=== PATIENT | female | born 1950 | race Two or more races ===

== ENCOUNTER 2018-01-05 19:35 | Emergency (ER) | payer BC, MEDICARE ==
[~2018-01-05] VITALS: Ht 162.6 cm; Wt 69.6 kg
[2018-01-05 19:40] VITALS: BP 132/69
[2018-01-05 20:09] LABS: BASOPHILS % (AUTO) 0 % (0-1); EOSINOPHILS # (AUTO) 0.01 x10^3/uL (0-0.4); EOSINOPHILS % (AUTO) 0 % (1-7); LYMPHOCYTES # (AUTO) 1.13 x10^3/uL (1-3.4); LYMPHOCYTES % (AUTO) 16 % (22-44); MD NO; MEAN CORPUSCULAR HEMOGLOBIN 32.7 pg (27.0-34.8); MEAN CORPUSCULAR HGB CONC 34.6 g/dL (32.4-35.8); MEAN CORPUSCULAR VOLUME 94.4 fL (80-100); MEAN PLATELET VOLUME 7.9 fL (7.4-10.4); MONOCYTES % (AUTO) 4 % (2-9); NEUTROPHILS # (AUTO) 5.78 x10^3/uL (1.8-6.8); NEUTROPHILS % (AUTO) 80 % (42-75); PLATELET COUNT 229 x10^3/uL (130-400); RED CELL DISTRIBUTION WIDTH 12.3 % (9.6-15.2)
[2018-01-05 20:10] LABS: ALBUMIN 3.6 g/dL (3.4-5.0); ANION GAP 7 mmol/L (5-15); CALCIUM 8.6 mg/dL (8.5-10.1); CHLORIDE 100 mmol/L (98-107); CREATININE 1.11 mg/dL (0.55-1.02)
[2018-01-06] MEDS ORDERED: TRIA1TAB5 PO (15:14)
[2018-01-06] MEDS ORDERED: POTA20TA89 PO (15:15)
[2018-01-06] MEDS ORDERED: AZATHIOPRINE PO (15:26)
== END 2018-01-05 20:52 | disposition home or self-care (01) ==
LOC: ED 19:55
DX: R25.1 Tremor, unspecified (principal); Z00.01 Encounter for general adult medical examination with abnormal findings; M06.9 Rheumatoid arthritis, unspecified
CPT/HCPCS: 36415; 80048; 82040; 85025; 99283

== ENCOUNTER 2018-01-06 13:38 | Emergency (ER) | payer MEDICARE ==
[~2018-01-06] VITALS: Ht 162.6 cm; Wt 68.9 kg
[2018-01-06 13:43] VITALS: BP 124/58
[2018-01-06 14:50] LABS: BASOPHILS # (AUTO) 0.01 x10^3/uL (0-0.1); BASOPHILS % (AUTO) 0 % (0-1); EOSINOPHILS % (AUTO) 0 % (1-7); LYMPHOCYTES # (AUTO) 0.47 x10^3/uL (1-3.4); LYMPHOCYTES % (AUTO) 7 % (22-44); MD NO; MEAN CORPUSCULAR HGB CONC 32.7 g/dL (32.4-35.8); MEAN CORPUSCULAR VOLUME 94.8 fL (80-100); MEAN PLATELET VOLUME 7.6 fL (7.4-10.4); MONOCYTES # (AUTO) 0.26 x10^3/uL (0.2-0.8); MONOCYTES % (AUTO) 4 % (2-9); NEUTROPHILS # (AUTO) 5.86 x10^3/uL (1.8-6.8); NEUTROPHILS % (AUTO) 89 % (42-75); PLATELET COUNT 195 x10^3/uL (130-400); RED BLOOD COUNT 3.99 x10^6/uL (3.82-5.3); RED CELL DISTRIBUTION WIDTH 12.2 % (9.6-15.2)
[2018-01-06 15:00] LABS: ANION GAP 1 mmol/L (5-15); CALCIUM 8.6 mg/dL (8.5-10.1); CHLORIDE 102 mmol/L (98-107); CREATININE 1.19 mg/dL (0.55-1.02)
[2018-01-06 15:09] LABS: CULTURE INDICATED? YES; MICROSCOPIC AUTO
[2018-01-06] MEDS ORDERED: TRIA1TAB5 PO (15:14)
[2018-01-06] MEDS ORDERED: POTA20TA89 PO (15:15)
[2018-01-06] MEDS ORDERED: AZATHIOPRINE PO (15:26)
== END 2018-01-06 16:10 | disposition home or self-care (01) ==
LOC: ED 16:00
DX: Z00.00 Encounter for general adult medical examination without abnormal findings (principal); I10 Essential (primary) hypertension; M06.9 Rheumatoid arthritis, unspecified
CPT/HCPCS: 36415; 80048; 81001; 85025; 87086; 99283

== ENCOUNTER 2018-07-09 11:18 | Emergency (ER) | payer OTHER ==
[~2018-07-09] VITALS: Ht 160 cm; Wt 69.1 kg
[~2018-07-09 11:18] MED LIST: AZATHIOPRINE PO; POTA20TA89 PO; TRIA1TAB5 PO
[2018-07-09 11:28] VITALS: BP 120/78
[2018-07-09] MEDS ORDERED: DEXAMETHASONE 4 MG TABLET ONE (11:53)
[2018-07-09] MEDS ORDERED: DEXAMETHASONE 4 MG TABLET PO ONE (12:00)
== END 2018-07-09 12:49 | disposition home or self-care (01) ==
LOC: ED 12:41
DX: J06.9 Acute upper respiratory infection, unspecified (principal); I10 Essential (primary) hypertension; M06.9 Rheumatoid arthritis, unspecified; Z87.891 Personal history of nicotine dependence
CPT/HCPCS: 71046; 87081; 87880; 99284

== ENCOUNTER 2018-12-10 11:21 | Day surgery (SDC) | payer BC, MEDICARE ==
[~2018-12-10] VITALS: Ht 144.8 cm; Wt 67.1 kg
--- NOTE | 2018-12-10 11:33 | NUR ---
Note undone in EDM - 12/10/18 at 1140 by DANG A&OX4, RESP EVEN & UNLABORED, SPEECH CLEAR, SKIN PALE/W/D. STATUS POST-CARDIAC SURGERY 11/30/18: NOHELIA MONTANO, VALVE REPAIR, PACEMAKER. C/O WEAKNESS, SOB, NAUSEA. DENIES VOMITING. LAST ORAL INTAKE: 0730 TODAY. LAST BM: YESTERDAY. PT ACCOMPANIED BY NEIGHBOR.
--- NOTE | 2018-12-10 12:03 | NUR ---
C/O EPIGASTRIC PAIN STARTED SHANE, VOMITED.. RECENTLY DX'D W/ GALLSTONES.
[2018-12-10 12:10] LABS: BASOPHILS # (AUTO) 0.01 x10^3/uL (0-0.1); BASOPHILS % (AUTO) 0 % (0-1); EOSINOPHILS # (AUTO) 0.01 x10^3/uL (0-0.4); EOSINOPHILS % (AUTO) 0 % (1-7); LYMPHOCYTES # (AUTO) 1.12 x10^3/uL (1-3.4); LYMPHOCYTES % (AUTO) 25 % (22-44); MD NO; MEAN CORPUSCULAR HEMOGLOBIN 32.8 pg (27.0-34.8); MEAN CORPUSCULAR HGB CONC 34.3 g/dL (32.4-35.8); MEAN CORPUSCULAR VOLUME 95.8 fL (80-100); MEAN PLATELET VOLUME 7.8 fL (7.4-10.4); MONOCYTES # (AUTO) 0.28 x10^3/uL (0.2-0.8); MONOCYTES % (AUTO) 6 % (2-9); NEUTROPHILS # (AUTO) 3.13 x10^3/uL (1.8-6.8); NEUTROPHILS % (AUTO) 69 % (42-75); PLATELET COUNT 224 x10^3/uL (130-400); RED BLOOD COUNT 4.22 x10^6/uL (3.82-5.3)
[2018-12-10 12:22] LABS: ALBUMIN 3.3 g/dL (3.4-5.0); ANION GAP 6 mmol/L (5-15); CALCIUM 8.7 mg/dL (8.5-10.1); CHLORIDE 102 mmol/L (98-107)
[2018-12-10 12:27] LABS: ALANINE AMINOTRANSFERASE 58 U/L (12-78); ALKALINE PHOSPHATASE 60 U/L (45-117); BILIRUBIN,TOTAL 0.3 mg/dL (0.2-1.0); CREATININE 1.02 mg/dL (0.55-1.02); TOTAL PROTEIN 9.6 g/dL (6.4-8.2)
[2018-12-10] MEDS ORDERED: POTASSIUM CHLORIDE 20 MEQ TAB.ER.PRT PO ONE (13:00)
--- NOTE | 2018-12-10 13:22 | NUR ---
XR AT BS
[2018-12-10] MEDS ORDERED: CEFTRIAXONE PMX 1GM/50ML 0 ML ONE (13:29)
[2018-12-10] MEDS ORDERED: POTASSIUM CHLORIDE 20 MEQ TAB.ER.PRT ONE ×2 (13:29→14:16)
[2018-12-10] MEDS ORDERED: CEFOTETAN PMX 1GM/50ML 50 ML IV ONE (13:30)
[2018-12-10 13:41] LABS: TROPONIN I < 0.015 ng/mL (0.000-0.045)
--- NOTE | 2018-12-10 13:45 | NUR ---
DR DEY BS
--- NOTE | 2018-12-10 13:52 | NUR ---
LAST ORAL INTAKE: [facility]G AT 1015 TODAY, WATER AFTER.
[2018-12-10] MEDS ORDERED: CEFOTETAN PMX 1GM/50ML 50 ML ONE (14:06)
--- NOTE | 2018-12-10 14:17 | NUR ---
[facility] DOSE CONFIRMED W/ DR DEY: 40mEq po NOW
--- NOTE | 2018-12-10 14:51 | NUR ---
PT REPORT TO ALTON AMADOR FOR ROOM 474
[2018-12-10 15:28] VITALS: BP 121/84
[2018-12-10] MEDS ORDERED: TURM538C PO (16:29)
[2018-12-10] MEDS ORDERED: EPINEPHRINE 1 MG/ML, 1ML ONE (19:07)
[2018-12-10] MEDS ORDERED: BUPIVACAINE/PF 0.5% ONE (19:07)
[2018-12-10] MEDS ORDERED: FENTANYL PF 250 MCG/5ML ONE (20:01)
[2018-12-10] MEDS ORDERED: SUGAMMADEX 200 MG/2 ML IVPush ONE (20:47)
[2018-12-10] MEDS ORDERED: NEOSTIGMINE 1 MG/ML, 10ML ONE (20:49)
[2018-12-10] MEDS ORDERED: GLYCOPYRROLATE 0.2MG/1ML, 5ML ONE (20:49)
[2018-12-10] MEDS ORDERED: ROCURONIUM 10MG/ML,5ML ONE (20:49)
[2018-12-10] MEDS ORDERED: ONDANSETRON 2MG/ML, 2ML ONE (20:49)
[2018-12-10] MEDS ORDERED: CEFAZOLIN 1,000 MG ONE (20:49)
[2018-12-10] MEDS ORDERED: SUCCINYLCHOLINE 20 MG/ML, 10ML ONE (20:49)
[2018-12-10] MEDS ORDERED: DEXAMETHASONE 4 MG/ML, 1ML ONE (20:49)
[2018-12-10] MEDS ORDERED: PROPOFOL 10 MG/ML, 20ML ONE (20:49)
[2018-12-10] MEDS ORDERED: OXYcodone 5 MG/5 ML ORAL.SOL UDC ONE (21:28)
[2018-12-10] MEDS ORDERED: FENTANYL PF 100 MCG/2ML ONE (21:28)
[2018-12-10] MEDS ORDERED: FENTANYL PF 100 MCG/2ML IV PRN (21:30)
[2018-12-10] MEDS ORDERED: LABETALOL 5MG/ML, 20ML IV PRN (21:30)
[2018-12-10] MEDS ORDERED: DIAZEPAM 5 MG/ML, 2ML IVPush PRN (21:30)
[2018-12-10] MEDS ORDERED: MEPERIDINE/PF 25MG/ML,1ML IVPush PRN (21:30)
[2018-12-10] MEDS ORDERED: hydrALAzine 20 MG/ML, 1ML IV PRN (21:30)
[2018-12-10] MEDS ORDERED: MORPHINE SULFATE 4 MG/ML, 1ML IVPush PRN (21:30)
[2018-12-10] MEDS ORDERED: ACETAMINOPHEN 325 MG TABLET PO PRN (21:30)
[2018-12-10] MEDS ORDERED: PROMETHAZINE 25 MG/ML, 1ML IV PRN (21:30)
[2018-12-10] MEDS ORDERED: MIDAZOLAM 1 MG/ML, 2ML IV PRN (21:30)
[2018-12-10] MEDS ORDERED: OXYcodone 5 MG/5 ML ORAL.SOL UDC PO PRN (21:30)
[2018-12-10] MEDS ORDERED: ONDANSETRON 2MG/ML, 2ML IV PRN (21:30)
[2018-12-10 22:35] VITALS: BP 143/80
[2018-12-11] MEDS ORDERED: IBUPROFEN 200 MG TABLET PO PRN (00:30)
[2018-12-11] MEDS ORDERED: ACETAMINOPHEN 325 MG TABLET PO PRN (00:30)
[2018-12-11] MEDS ORDERED: ONDANSETRON 2MG/ML, 2ML IV PRN (00:30)
[2018-12-11] MEDS ORDERED: HYDROmorphone 2 MG/ML, 1ML IV PRN (00:30)
[2018-12-11] MEDS ORDERED: OXYcodone IR 5MG TABLET PO PRN (00:30)
[2018-12-11 00:51] VITALS: BP 129/78
[2018-12-11] MEDS ORDERED: OXYC5TAB3 PO (03:23)
[2018-12-11 03:31] VITALS: BP 115/74
[2018-12-11 07:45] VITALS: BP 110/71
[2018-12-11] MEDS ORDERED: ONDA8TAB9 PO (08:45)
[2018-12-11] MEDS ORDERED: POTASSIUM CHLORIDE 20 MEQ TAB.ER.PRT PO SCH (09:00)
[2018-12-11] MEDS ORDERED: TRIAMTERENE/HCTZ 75/50MG TABLET PO SCH (09:00)
== END 2018-12-11 09:34 | disposition home or self-care (01) ==
LOC: ED 12:59 → UNDOADMOB 13:00 → OUT 13:00 → EDIP 13:00 → ED 13:57 → 4NE 15:13 → EDIP 15:13 → INTOOBSV 15:18 → OBSVTOIN 15:18 → EDSTATUS 18:31 → 4NE 12-11 09:22 → DCLOUNGE 12-11 09:22 → UNDODISOB 12-11 09:34 → OUT 12-11 09:34
PROVIDERS: ATTEND Emergency Medicine
DX: K80.12 Calculus of gallbladder with acute and chronic cholecystitis without obstruction (principal); K82.8 Other specified diseases of gallbladder; I10 Essential (primary) hypertension; M06.9 Rheumatoid arthritis, unspecified; Z87.891 Personal history of nicotine dependence; Z79.899 Other long term (current) drug therapy
CPT/HCPCS: 36415; 47562; 71045; 76700; 80053; 83690; 84132; 84484; 85025; 88304; 93005; 96365; 99284; J0171; J0690; J1100; J2405; J2704; J3010; J3490; G0378; J2710; J0330

== ENCOUNTER 2020-08-29 07:55 | Emergency (ER) | payer MEDICARE, MEDICAID ==
[~2020-08-29] VITALS: Ht 167.6 cm; Wt 66.1 kg
[~2020-08-29 07:55] MED LIST changes: +ONDA8TAB9 PO; +OXYC5TAB98 PO; +TURM538C PO
--- NOTE | 2020-08-29 08:13 | NUR ---
PT TO ROOM FROM TRIAGE IN A WHEELCHAIR. CHANGING INTO A GOWN W AT THE BEDSIDE.
--- NOTE | 2020-08-29 09:02 | NUR ---
REPORT FROM LONA.PT IS RESTING. WAITING FOR FURTHER ORDERS
[2020-08-29] MEDS ORDERED: SODIUM CHLORIDE FLUSH 10ML SYR IVF ONE (09:30)
--- NOTE | 2020-08-29 09:39 | NUR ---
PIV, BLOOD CULTURES, LABS COLLECTED. PT AMBULATED TO BATHROOM W STEADY GAIT FOR UA
[2020-08-29 09:55] LABS: ALANINE AMINOTRANSFERASE 22 U/L (12-78); ALBUMIN 3.2 g/dL (3.4-5.0); ANION GAP 3 mmol/L (5-15); CHLORIDE 99 mmol/L (98-107); CREATININE 0.92 mg/dL (0.55-1.02)
[2020-08-29 09:55] LABS: MICROSCOPIC INDICATED
[2020-08-29 10:00] LABS: ALKALINE PHOSPHATASE 36 U/L (45-117); BILIRUBIN,TOTAL 0.5 mg/dL (0.2-1.0); TOTAL PROTEIN 9.9 g/dL (6.4-8.2); TROPONIN I 0.065 ng/mL (0.000-0.045)
[2020-08-29 10:04] LABS: BASOPHILS % (AUTO) 0 % (0-1); EOSINOPHILS % (AUTO) 0 % (1-7); LYMPHOCYTES % (AUTO) 13 % (22-44); MEAN CORPUSCULAR HEMOGLOBIN 32.4 pg (27.0-34.8); MEAN CORPUSCULAR HGB CONC 34.6 g/dL (32.4-35.8); MEAN PLATELET VOLUME 7.7 fL (7.4-10.4); MONOCYTES % (AUTO) 8 % (2-9); NEUTROPHILS % (AUTO) 78 % (42-75); PLATELET COUNT 213 x10^3/uL (130-400); RED BLOOD COUNT 4.16 x10^6/uL (3.82-5.3); RED CELL DISTRIBUTION WIDTH 12.4 % (9.6-15.2)
--- NOTE | 2020-08-29 10:44 | NUR ---
PT TO CTA
[2020-08-29] MEDS ORDERED: OMNIPAQUE 350 MG/ML, 75ML BOTTLE ONE (10:49)
[2020-08-29] MEDS ORDERED: POTASSIUM CHLORIDE 20 MEQ TAB.ER.PRT PO ONE (11:00)
[2020-08-29] MEDS ORDERED: POTASSIUM CHLORIDE 20 MEQ TAB.ER.PRT ONE (12:11)
[2020-08-29 12:14] VITALS: BP 120/71
--- NOTE | 2020-08-29 12:15 | NUR ---
ERMD AT BEDSIDE DISCUSSING POC AND QUESTIONS. PT VSS.. READY FOR DC
--- NOTE | 2020-08-29 12:24 | NUR ---
Patient given discharge instructions and they have confirmed that they understand the instructions. Patient ambulatory with steady gait.
== END 2020-08-29 12:27 | disposition home or self-care (01) ==
LOC: ED 10:34
DX: R05 Cough (principal); R06.02 Shortness of breath; I10 Essential (primary) hypertension; M06.9 Rheumatoid arthritis, unspecified; Z87.891 Personal history of nicotine dependence
CPT/HCPCS: 36415; 71045; 71275; 76380; 80053; 81001; 83605; 84484; 85025; 87040; 87086; 93005; 99285; J7512; Q9967